=== PATIENT | female | born 1965 | race Caucasian/White ===

== ENCOUNTER → 2022-02-24 | Outpatient (CLI) | payer OTHER ==
--- NOTE | 2022-02-28 08:12 | MM ---
Reason for Exam: Screening (asymptomatic). Last mammogram was performed 2 year(s) and 5 month(s) ago. Patient History: Menarche at age 12. First Full-Term at age 23. Postmenopausal. Unspecified Hormone for 1 year from age 40 until age 41. Maternal aunt had breast cancer, age 50. Risk Values: Brandi 5 year model risk: 1.2%. NCI Lifetime model risk: 8.1%. Prior Study Comparison: 10/15/2006 Bilateral Diagnostic Mammogram, [facility]. 10/17/2007 Bilateral Screening Mammogram, [facility]. 03/03/2009 Bilateral Screening Mammogram, [facility]. 08/31/2017 Bilateral MG screening mammo w CAD - 2, [facility]. 09/17/2019 Bilateral MG screening mammo w CAD - 2, [facility]. Tissue Density: There are scattered fibroglandular densities. Findings: Analyzed By CAD. There is no suspicious group of microcalcifications or new suspicious mass in either breast. Overall Assessment: Negative, BI-RAD 1 Management: Screening Mammogram of both breasts in 1 year. A clinical breast exam by your physician is recommended on an annual basis and results should be correlated with mammographic findings. Electronically signed and approved by: Wilder Dumont M.D. Radiologis
== END | disposition home or self-care (01) ==
LOC: RADMAMWWP 12:35
PROVIDERS: ATTEND Family Medicine
DX: Z12.31 Encounter for screening mammogram for malignant neoplasm of breast (principal); Z78.0 Asymptomatic menopausal state; Z80.3 Family history of malignant neoplasm of breast
CPT/HCPCS: 77063; 77067

== ENCOUNTER → 2022-07-05 | Outpatient (CLI) | payer OTHER ==
[~2022-07-05] MED LIST: COSYNTROPIN 0.25 MG VIAL IVP NR; SODIUM CHLORIDE 0.9% 500 ML 500 ML in EMPTY BAG 1 BAG IV PRN
[2022-07-05 07:59] VITALS: BP 157/98; PULSE 75; RESP 16; TEMP 97.7
== END ==
LOC: PROCWHC3 07:43
PROVIDERS: ATTEND Family Medicine
DX: R53.83 Other fatigue (principal); E27.40 Unspecified adrenocortical insufficiency; F34.1 Dysthymic disorder
CPT/HCPCS: 82533; 82024; 96374; 36415; J0834

== ENCOUNTER → 2023-02-26 | Outpatient (CLI) | payer OTHER ==
--- NOTE | 2023-02-27 16:01 | MM ---
Reason for Exam: Screening (asymptomatic). Last screening mammogram was performed 12 month(s) ago. Patient History: Menarche at age 12. First Full-Term at age 23. Postmenopausal. Unspecified Hormone for 1 year from age 40 until age 41. Maternal aunt had breast cancer, age 50. Risk Values: Brandi 5 year model risk: 1.2%. NCI Lifetime model risk: 7.9%. Prior Study Comparison: 08/31/2017 Bilateral MG screening mammo w CAD - 2, [facility]. 09/17/2019 Bilateral MG screening mammo w CAD - 2, [facility]. 02/24/2022 Bilateral MG 3D screening mammo w/cad, [facility]. Tissue Density: There are scattered fibroglandular densities. Findings: Analyzed By CAD. There is no suspicious group of microcalcifications or new suspicious mass in either breast. Overall Assessment: Negative, BI-RAD 1 Management: Screening Mammogram of both breasts in 1 year. . Patient should continue monthly self-breast exams. A clinical breast exam by your physician is recommended on an annual basis. This exam should not preclude additional follow-up of suspicious palpable abnormalities. Note on Brandi scores and lifetime risk: 1. A Brandi score greater than 3% is considered moderate risk. If this is the case, consider specialist referral to assess eligibility for a risk reducing agent. 2. If overall lifetime risk for the development of breast cancer is 20% or higher, the patient may qualify for future screening with alternating mammogram and breast MRI. Electronically signed and approved by: Alexx Mattson M.D. Radiologist
== END | disposition home or self-care (01) ==
LOC: RADMAMWWP 09:18
PROVIDERS: ATTEND Family Medicine
DX: Z12.31 Encounter for screening mammogram for malignant neoplasm of breast (principal); Z80.3 Family history of malignant neoplasm of breast; Z78.0 Asymptomatic menopausal state
CPT/HCPCS: 77063; 77067

== ENCOUNTER → 2023-05-11 | Outpatient (CLI) | payer OTHER ==
[2023-05-12 03:22] LABS: Immunoglobulin E 29.4 IU/mL (0.00-114.00)
== END | disposition home or self-care (01) ==
LOC: LABWHC1 15:54
PROVIDERS: ATTEND Family Medicine
DX: K21.9 Gastro-esophageal reflux disease without esophagitis (principal); E63.9 Nutritional deficiency, unspecified
CPT/HCPCS: 36415; 82306; 82533; 82607; 82746; 82784; 82785

== ENCOUNTER → 2024-03-10 | Outpatient (CLI) | payer OTHER ==
--- NOTE | 2024-03-10 10:24 | MM ---
Reason for Exam: Screening (asymptomatic). Last mammogram was performed 1 year(s) and 1 month(s) ago. Patient History: Menarche at age 12. First Full-Term at age 23. Postmenopausal. Unspecified Hormone for 1 year from age 40 until age 41. Maternal aunt had breast cancer, age 50. Risk Values: Brandi 5 year model risk: 1.3%. NCI Lifetime model risk: 7.7%. Prior Study Comparison: 09/17/2019 Bilateral MG screening mammo w CAD - 2, [facility]. 02/24/2022 Bilateral MG 3D screening mammo w/cad, [facility]. 02/26/2023 Bilateral MG 3D screening mammo w/cad, [facility]. Tissue Density: The breasts are almost entirely fatty. Findings: Analyzed By CAD. There is no suspicious group of microcalcifications or new suspicious mass in either breast. Overall Assessment: Negative, BI-RAD 1 Management: Screening Mammogram of both breasts in 1 year. . Patient should continue monthly self-breast exams. A clinical breast exam by your physician is recommended on an annual basis. This exam should not preclude additional follow-up of suspicious palpable abnormalities. Note on Brandi scores and lifetime risk: 1. A Brandi score greater than 3% is considered moderate risk. If this is the case, consider specialist referral to assess eligibility for a risk reducing agent. 2. If overall lifetime risk for the development of breast cancer is 20% or higher, the patient may qualify for future screening with alternating mammogram and breast MRI. [facility], , 03/10/2024 10:21 AM. Electronically signed and approved by: Chavez Shipley M.D.
== END | disposition home or self-care (01) ==
LOC: RADMAMWWP 09:30
PROVIDERS: ATTEND Family Medicine
DX: Z12.31 Encounter for screening mammogram for malignant neoplasm of breast (principal); R92.313 Mammographic fatty tissue density, bilateral breasts; Z78.0 Asymptomatic menopausal state; Z80.3 Family history of malignant neoplasm of breast
CPT/HCPCS: 77063; 77067